=== PATIENT | female | born 1995 | race Caucasian/White ===

== ENCOUNTER → 2020-05-24 | Outpatient (CLI) | payer MEDICAID | LOC: COL.RAD 09:55 | DX: K31.84 Gastroparesis (principal) | CPT/HCPCS: A9537; J2805 ==

== ENCOUNTER 2020-08-12 12:08 | Emergency (ER) | payer MEDICAID ==
[~2020-08-12] VITALS: Ht 160 cm; Wt 59.1 kg
[2020-08-12 12:14] VITALS: BP 130/81; TEMP 98.9
[2020-08-12 12:55] LABS: COLLECTION METHOD CLEAN CATCH
[2020-08-12 13:01] LABS: BASO % 0.2 % (0.0-2.0); EOS % 0.1 % (0-4.0); GRAN # 9.1 (1.4-6.5); GRAN % 81.7 % (42.2-75.2); HEMOGLOBIN 11.5 g/dl (12.5-16.0); LYMPH # 1.5 (1.2-3.4); LYMPH % 13.2 % (20.0-51.0); MEAN CELL VOLUME 92 fl (80.0-100.0); MEAN CORPUSCULAR HEMOGLOBIN 31 pg (27.0-31.0); MEAN CORPUSCULAR HGB CONC 34 g/dl (33.0-37.0); MEAN PLATELET VOLUME 10.1 fl (7.4-10.4); MONO # 0.5 (0.1-0.6); MONO % 4.5 % (1.7-9.3); PLATELET COUNT 360 K/mm3 (130-400); RED BLOOD COUNT 3.67 M/mm3 (4.10-5.30); REDCELL DISTRIBUTION WIDTH-CV 12.6 % (11.5-14.5)
[2020-08-12 13:10] LABS: MUCOUS Present /lpf; PH 6 (5-8); URINE APPEARANCE Cloudy; URINE BACTERIA Rare /hpf; URINE BILIRUBIN Negative (NEGATIVE); URINE BLOOD Negative (NEGATIVE); URINE COLOR Yellow; URINE GLUCOSE Negative (NEGATIVE); URINE KETONE Trace (NEGATIVE); URINE LEUKOCYTE ESTERASE Negative (NEGATIVE); URINE NITRATE Negative (NEGATIVE); URINE PROTEIN(semi-quant) 1+ (NEGATIVE); URINE RBC 0-2 /hpf
[2020-08-12 13:10] LABS: HEMATOCRIT 33.8 % (37.0-47.0)
[2020-08-12 13:11] LABS: ALANINE AMINOTRANSFERASE 9 U/L (4-34); ALKALINE PHOSPHATASE 41 U/L (50-136); ANION GAP 10 mmol/L (7-16); AST,SGOT 18 U/L (15-37); BILIRUBIN,TOTAL 0.3 mg/dL (0.0-1.0); BLOOD UREA NITROGEN 7 mg/dL (7-17); CALCIUM 9.1 mg/dL (8.4-10.2); CARBON DIOXIDE 21 mmol/L (22-30); CHLORIDE 102 mmol/L (98-107); CREATININE, serum 0.41 (0.52-1.25); GLUCOSE 103 mg/dL (74-106); LIPASE 84 U/L (23-300); SODIUM 133 mmol/L (137-145); TOTAL PROTEIN 6.9 gm/dL (6.4-8.2)
[2020-08-12 13:12] LABS: C-REACTIVE PROTEIN < 0.5 mg/dL (0.0-0.9)
[2020-08-12] MEDS ORDERED: REGLAN 10MG10 MG/TAB PO (13:58)
[2020-08-12 14:20] LABS: HCG,QUANTITATIVE 103850 mIU/mL (0-5)
[2020-08-12 14:29] VITALS: PULSE 93
== END 2020-08-12 14:29 | disposition home or self-care (01) ==
LOC: COL.ER 12:08
PROVIDERS: Emergency Medicine
DX: O99.611 Diseases of the digestive system complicating pregnancy, first trimester (principal); O21.9 Vomiting of pregnancy, unspecified; K31.84 Gastroparesis; Z3A.09 9 weeks gestation of pregnancy; Z87.891 Personal history of nicotine dependence
CPT/HCPCS: J2405; J2550; J7030

== ENCOUNTER 2020-08-25 11:50 | Emergency (ER) | payer MEDICAID ==
[~2020-08-25] VITALS: Ht 160 cm; Wt 58.2 kg
[~2020-08-25 11:50] MED LIST: REGLAN 10MG10 MG/TAB PO
[2020-08-25 12:19] VITALS: TEMP 97.4
[2020-08-25 12:30] LABS: COLLECTION METHOD CLEAN CATCH
[2020-08-25 12:39] LABS: MUCOUS Present /lpf; PH 8 (5-8); URINE APPEARANCE Cloudy; URINE BACTERIA Rare /hpf; URINE BILIRUBIN Negative (NEGATIVE); URINE BLOOD Negative (NEGATIVE); URINE COLOR Yellow; URINE GLUCOSE Negative (NEGATIVE); URINE KETONE Negative (NEGATIVE); URINE LEUKOCYTE ESTERASE Negative (NEGATIVE); URINE NITRATE Negative (NEGATIVE); URINE PROTEIN(semi-quant) Negative (NEGATIVE); URINE RBC 0-2 /hpf; URINE UROBILINOGEN Negative (NEGATIVE)
[2020-08-25 13:20] LABS: BASO % 0.2 % (0.0-2.0); EOS % 0.3 % (0-4.0); GRAN # 8.9 (1.4-6.5); GRAN % 74.6 % (42.2-75.2); LYMPH # 2.2 (1.2-3.4); MEAN CELL VOLUME 92 fl (80.0-100.0); MEAN CORPUSCULAR HEMOGLOBIN 32 pg (27.0-31.0); MEAN CORPUSCULAR HGB CONC 35 g/dl (33.0-37.0); MEAN PLATELET VOLUME 10.1 fl (7.4-10.4); MONO # 0.8 (0.1-0.6); MONO % 6.6 % (1.7-9.3); PLATELET COUNT 319 K/mm3 (130-400); RED BLOOD COUNT 3.16 M/mm3 (4.10-5.30); REDCELL DISTRIBUTION WIDTH-CV 12.5 % (11.5-14.5)
[2020-08-25 13:23] LABS: HEMATOCRIT 28.9 % (37.0-47.0)
[2020-08-25 13:30] LABS: ALBUMIN 3.1 gm/dL (3.5-5.0); BILIRUBIN,TOTAL 0.2 mg/dL (0.0-1.0); CALCIUM 8.5 mg/dL (8.4-10.2); CREATININE, serum 0.36 (0.52-1.25); POTASSIUM 3.3 mmol/L (3.4-5.0); TOTAL PROTEIN 5.6 gm/dL (6.4-8.2)
[2020-08-25 14:29] VITALS: BP 119/69; PULSE 95
== END 2020-08-25 14:26 | disposition home or self-care (01) ==
LOC: COL.ER 11:50
PROVIDERS: Emergency Medicine; Nurse Practitioner
DX: O21.9 Vomiting of pregnancy, unspecified (principal); O26.891 Other specified pregnancy related conditions, first trimester; R10.30 Lower abdominal pain, unspecified; Z3A.12 12 weeks gestation of pregnancy; Z87.891 Personal history of nicotine dependence
CPT/HCPCS: J1200; J2765; J3415; J7030

== ENCOUNTER 2020-08-29 09:00 | Emergency (ER) | payer MEDICAID ==
[~2020-08-29] VITALS: Ht 160 cm; Wt 59.5 kg
[2020-08-29 09:09] VITALS: TEMP 98.2
[2020-08-29 09:53] LABS: BASO % 0.3 % (0.0-2.0); EOS % 0.2 % (0-4.0); GRAN # 8.5 (1.4-6.5); GRAN % 78.9 % (42.2-75.2); LYMPH # 1.5 (1.2-3.4); LYMPH % 13.9 % (20.0-51.0); MEAN CELL VOLUME 92 fl (80.0-100.0); MEAN CORPUSCULAR HEMOGLOBIN 31 pg (27.0-31.0); MEAN CORPUSCULAR HGB CONC 34 g/dl (33.0-37.0); MEAN PLATELET VOLUME 9.7 fl (7.4-10.4); MONO # 0.7 (0.1-0.6); MONO % 6.3 % (1.7-9.3); PLATELET COUNT 408 K/mm3 (130-400); RED BLOOD COUNT 4.14 M/mm3 (4.10-5.30); REDCELL DISTRIBUTION WIDTH-CV 12.6 % (11.5-14.5)
[2020-08-29 10:15] LABS: ALANINE AMINOTRANSFERASE 17 U/L (4-34); ALBUMIN 4.6 gm/dL (3.5-5.0); ALKALINE PHOSPHATASE 51 U/L (50-136); ANION GAP 10 mmol/L (7-16); AST,SGOT 20 U/L (15-37); BILIRUBIN,TOTAL 0.6 mg/dL (0.0-1.0); BLOOD UREA NITROGEN 7 mg/dL (7-17); CARBON DIOXIDE 25 mmol/L (22-30); CHLORIDE 99 mmol/L (98-107); CREATININE, serum 0.43 (0.52-1.25); GLUCOSE 100 mg/dL (74-106); LIPASE 65 U/L (23-300); POTASSIUM 4.9 mmol/L (3.4-5.0); SODIUM 134 mmol/L (137-145); TOTAL PROTEIN 7.7 gm/dL (6.4-8.2)
[2020-08-29 10:16] LABS: C-REACTIVE PROTEIN < 0.5 mg/dL (0.0-0.9)
[2020-08-29 11:01] LABS: COLLECTION METHOD CLEAN CATCH
[2020-08-29 11:15] LABS: PH 8 (5-8); SQUAMOUS EPITHELIAL 0-2 /hpf; URINE APPEARANCE Clear; URINE BACTERIA Rare /hpf; URINE BILIRUBIN Negative (NEGATIVE); URINE BLOOD Negative (NEGATIVE); URINE COLOR Straw; URINE GLUCOSE Negative (NEGATIVE); URINE KETONE Negative (NEGATIVE); URINE LEUKOCYTE ESTERASE Negative (NEGATIVE); URINE NITRATE Negative (NEGATIVE); URINE PROTEIN(semi-quant) Negative (NEGATIVE); URINE RBC 0-2 /hpf; URINE UROBILINOGEN Negative (NEGATIVE)
[2020-08-29 11:55] VITALS: BP 130/83; PULSE 77
== END 2020-08-29 12:00 | disposition home or self-care (01) ==
LOC: COL.ER 09:00
PROVIDERS: Family Medicine
DX: O21.9 Vomiting of pregnancy, unspecified (principal); Z3A.12 12 weeks gestation of pregnancy
CPT/HCPCS: J2550; J7030; J7120

== ENCOUNTER 2020-10-09 10:11 | Emergency (ER) | payer MEDICAID ==
[~2020-10-09] VITALS: Ht 160 cm; Wt 59.5 kg
[2020-10-09 10:17] VITALS: TEMP 97.9
[2020-10-09 11:05] LABS: COLLECTION METHOD CLEAN CATCH
[2020-10-09 11:09] LABS: BASO % 0.2 % (0.0-2.0); EOS % 0.4 % (0-4.0); GRAN % 74.6 % (42.2-75.2); HEMOGLOBIN 10.1 g/dl (12.5-16.0); LYMPH % 18.2 % (20.0-51.0); MEAN CELL VOLUME 93 fl (80.0-100.0); MEAN CORPUSCULAR HEMOGLOBIN 31 pg (27.0-31.0); MEAN CORPUSCULAR HGB CONC 34 g/dl (33.0-37.0); MEAN PLATELET VOLUME 10.2 fl (7.4-10.4); MONO # 0.7 (0.1-0.6); MONO % 6.2 % (1.7-9.3); PLATELET COUNT 345 K/mm3 (130-400); RED BLOOD COUNT 3.22 M/mm3 (4.10-5.30); REDCELL DISTRIBUTION WIDTH-CV 12.4 % (11.5-14.5)
[2020-10-09 11:21] LABS: HEMATOCRIT 29.9 % (37.0-47.0)
[2020-10-09 11:27] LABS: ALANINE AMINOTRANSFERASE 8 U/L (4-34); ALBUMIN 3.4 gm/dL (3.5-5.0); ALKALINE PHOSPHATASE 41 U/L (50-136); ANION GAP 6 mmol/L (7-16); AST,SGOT 17 U/L (15-37); BILIRUBIN,TOTAL 0.3 mg/dL (0.0-1.0); BLOOD UREA NITROGEN 4 mg/dL (7-17); CALCIUM 8.8 mg/dL (8.4-10.2); CARBON DIOXIDE 23 mmol/L (22-30); CHLORIDE 104 mmol/L (98-107); CREATININE, serum 0.41 (0.52-1.25); GLUCOSE 85 mg/dL (74-106); LIPASE 43 U/L (23-300); POTASSIUM 3.7 mmol/L (3.4-5.0); SODIUM 132 mmol/L (137-145); TOTAL PROTEIN 6.2 gm/dL (6.4-8.2)
[2020-10-09 11:28] LABS: C-REACTIVE PROTEIN < 0.5 mg/dL (0.0-0.9)
[2020-10-09 11:52] LABS: AMORPHOUS CRYSTAL Present /uL; MUCOUS Present /lpf; PH 9 (5-8); SQUAMOUS EPITHELIAL 0-2 /hpf; URINE APPEARANCE Cloudy; URINE BACTERIA Rare /hpf; URINE BILIRUBIN Negative (NEGATIVE); URINE BLOOD Negative (NEGATIVE); URINE COLOR Yellow; URINE GLUCOSE Negative (NEGATIVE); URINE KETONE Negative (NEGATIVE); URINE LEUKOCYTE ESTERASE Negative (NEGATIVE); URINE NITRATE Negative (NEGATIVE); URINE PROTEIN(semi-quant) 1+ (NEGATIVE); URINE RBC 0-2 /hpf; URINE UROBILINOGEN Negative (NEGATIVE)
[2020-10-09] MEDS ORDERED: PHENERGAN 25 TA25 MG PO (12:37)
[2020-10-09 13:37] VITALS: BP 101/61; PULSE 79
== END 2020-10-09 13:39 | disposition home or self-care (01) ==
LOC: COL.ER 10:11
PROVIDERS: Nurse Practitioner
DX: O21.9 Vomiting of pregnancy, unspecified (principal); O26.812 Pregnancy related exhaustion and fatigue, second trimester; Z3A.18 18 weeks gestation of pregnancy; Z87.891 Personal history of nicotine dependence
CPT/HCPCS: J2550; J7030

== ENCOUNTER 2020-10-21 09:45 | Emergency (ER) | payer MEDICAID ==
[~2020-10-21] VITALS: Ht 160 cm; Wt 58.6 kg
[~2020-10-21 09:45] MED LIST changes: +PHENERGAN 25 TA25 MG PO
[2020-10-21 09:51] VITALS: TEMP 98.7
[2020-10-21 10:23] LABS: COLLECTION METHOD CLEAN CATCH
[2020-10-21 10:37] LABS: ALBUMIN 3.6 gm/dL (3.5-5.0); BILIRUBIN,TOTAL 0.3 mg/dL (0.0-1.0); CALCIUM 8.8 mg/dL (8.4-10.2); CREATININE, serum 0.41 (0.52-1.25); TOTAL PROTEIN 6.5 gm/dL (6.4-8.2)
[2020-10-21 10:38] LABS: MUCOUS Present /lpf; PH 9 (5-8); SQUAMOUS EPITHELIAL None Seen /hpf; URINE APPEARANCE Cloudy; URINE BACTERIA Rare /hpf; URINE BILIRUBIN Negative (NEGATIVE); URINE BLOOD Negative (NEGATIVE); URINE COLOR Yellow; URINE GLUCOSE Negative (NEGATIVE); URINE KETONE Trace (NEGATIVE); URINE LEUKOCYTE ESTERASE Negative (NEGATIVE); URINE NITRATE Negative (NEGATIVE); URINE PROTEIN(semi-quant) 2+ (NEGATIVE); URINE UROBILINOGEN Negative (NEGATIVE)
[2020-10-21 10:39] LABS: POTASSIUM 3.5 mmol/L (3.4-5.0)
[2020-10-21 10:40] LABS: BASO % 0.3 % (0.0-2.0); EOS % 0.4 % (0-4.0); GRAN # 5.6 (1.4-6.5); GRAN % 73.2 % (42.2-75.2); HEMOGLOBIN 10.4 g/dl (12.5-16.0); LYMPH # 1.5 (1.2-3.4); LYMPH % 19.9 % (20.0-51.0); MEAN CELL VOLUME 90 fl (80.0-100.0); MEAN CORPUSCULAR HEMOGLOBIN 31 pg (27.0-31.0); MEAN CORPUSCULAR HGB CONC 35 g/dl (33.0-37.0); MEAN PLATELET VOLUME 10.4 fl (7.4-10.4); MONO # 0.5 (0.1-0.6); MONO % 6.1 % (1.7-9.3); PLATELET COUNT 385 K/mm3 (130-400); RED BLOOD COUNT 3.33 M/mm3 (4.10-5.30); REDCELL DISTRIBUTION WIDTH-CV 12.2 % (11.5-14.5)
[2020-10-21 10:49] LABS: HEMATOCRIT 30.1 % (37.0-47.0)
[2020-10-21 10:59] VITALS: BP 141/85
[2020-10-21] MEDS ORDERED: NATURAL IRON65 MG PO (11:02)
[2020-10-21] MEDS ORDERED: ZOFRAN ODT8 MG PO (11:02)
[2020-10-21 11:31] VITALS: PULSE 81
--- NOTE | 2020-10-21 16:22 | NUR ---
SW contacted patient at home, as patient had discharged prior to SW being able to contact her. WAYNE verified that patient lives at [address] [place] [address] in [place], [place] with life partner Kelton Talamantes. Patient has [employer] insurance. Patient sees Dr. Stein at [facility] and reports that she has regular care. Patient is interested in treatment for her substance use. SW explained that patient will need to receive screening and offered patient numbers for [facility] and [facility]. Patient reports that she will most likely make an appointment with [facility]. SW instructed patient to let developer architect know that she is currently , as it will place her as priority for IP/OP treatment. The developer architect will offer her options and assist with getting into treatment from there. Patient reports that she will attempt to call them today if not Monday 10/23 due to possible contact issues on the weekend. Patient denies any further questions or concerns at this time.
== END 2020-10-21 11:34 | disposition home or self-care (01) ==
LOC: COL.ER 09:45
PROVIDERS: Physician Assistant
DX: O21.9 Vomiting of pregnancy, unspecified (principal); O99.012 Anemia complicating pregnancy, second trimester; Z3A.19 19 weeks gestation of pregnancy
CPT/HCPCS: J2765; J7030

== ENCOUNTER 2020-11-14 08:19 | Emergency (ER) | payer MEDICAID ==
[~2020-11-14] VITALS: Ht 160 cm; Wt 59.1 kg
[~2020-11-14 08:19] MED LIST changes: +NATURAL IRON65 MG PO; +ZOFRAN ODT8 MG PO
[2020-11-14 08:27] VITALS: BP 93/57; TEMP 98.1
[2020-11-14 08:58] LABS: BASO % 0.4 % (0.0-2.0); EOS % 0.4 % (0-4.0); GRAN # 6.3 (1.4-6.5); GRAN % 79.2 % (42.2-75.2); LYMPH # 1.2 (1.2-3.4); LYMPH % 15.3 % (20.0-51.0); MEAN CELL VOLUME 93 fl (80.0-100.0); MEAN CORPUSCULAR HGB CONC 33 g/dl (33.0-37.0); MEAN PLATELET VOLUME 10.4 fl (7.4-10.4); MONO # 0.3 (0.1-0.6); MONO % 4.2 % (1.7-9.3); PLATELET COUNT 332 K/mm3 (130-400); RED BLOOD COUNT 3.23 M/mm3 (4.10-5.30); REDCELL DISTRIBUTION WIDTH-CV 12.5 % (11.5-14.5)
[2020-11-14 09:09] LABS: ALBUMIN 3.4 gm/dL (3.5-5.0); BILIRUBIN,TOTAL 0.1 mg/dL (0.0-1.0); CALCIUM 8.4 mg/dL (8.4-10.2); CREATININE, serum 0.41 (0.52-1.25); HEMATOCRIT 29.9 % (37.0-47.0); HEMOGLOBIN 9.9 g/dl (12.5-16.0); MEAN CORPUSCULAR HEMOGLOBIN 31 pg (27.0-31.0); POTASSIUM 3.8 mmol/L (3.4-5.0); TOTAL PROTEIN 6.3 gm/dL (6.4-8.2)
[2020-11-14 09:24] LABS: COLLECTION METHOD CLEAN CATCH
[2020-11-14 09:48] LABS: AMORPHOUS CRYSTAL Present /uL; MUCOUS Present /lpf; PH 9 (5-8); SQUAMOUS EPITHELIAL None Seen /hpf; URINE APPEARANCE Cloudy; URINE BACTERIA Rare /hpf; URINE BILIRUBIN Negative (NEGATIVE); URINE BLOOD Negative (NEGATIVE); URINE COLOR Yellow; URINE GLUCOSE Negative (NEGATIVE); URINE KETONE 1+ (NEGATIVE); URINE LEUKOCYTE ESTERASE Negative (NEGATIVE); URINE NITRATE Negative (NEGATIVE); URINE PROTEIN(semi-quant) 1+ (NEGATIVE); URINE RBC 0-2 /hpf; URINE UROBILINOGEN Negative (NEGATIVE)
[2020-11-14] MEDS ORDERED: ZOFRAN ODT4 MG PO (10:09)
[2020-11-14 10:14] VITALS: PULSE 115
== END 2020-11-14 10:14 | disposition home or self-care (01) ==
LOC: COL.ER 08:19
PROVIDERS: Emergency Medicine
DX: O26.892 Other specified pregnancy related conditions, second trimester (principal); O21.9 Vomiting of pregnancy, unspecified; R10.13 Epigastric pain; Z3A.23 23 weeks gestation of pregnancy
CPT/HCPCS: J2405; J2765; J7030

== ENCOUNTER 2020-11-14 10:11 | Outpatient (CLI) | payer MEDICAID ==
[~2020-11-14] VITALS: Ht 160 cm; Wt 59.1 kg
[~2020-11-14 10:11] MED LIST changes: +ZOFRAN ODT4 MG PO
--- NOTE | 2020-11-14 10:20 | NUR ---
1020-Patient to LR 3 from ED with complaints of right sided abdominal pain. Patient sees Dr. Bell in [place] for care and reports she is 23 weeks and a G4L1. Patient denies complications of other than "bad nausea." Patient admits to daily marijuana use "but I have cut back." to help with nausea. Reports the pain started this morning and was accompanied with severe nausea. Patient reports good movement and denies leaking of fluid. VSS. Patient very anxious throughout assessment and keeps saying "I didn't know you couldn't give me anything for my anxiety. I just want to leave." 1034-Spec exam by Dr. Romeo who is on unit. SVE by MD, closed cervix noted, no fluid. MD orders ultrasound. 1040-US on unit. Patient off EFM. 1100-Paitent calls out while US tech is in room and is very anxious in tears RN to bedside and discusses plan of care. Patient verbalizes desire to leave again. RN educates on right to decline procedure and leave AMA. Patient decides she would like to finish and leave as soon as possible. Patient unable to explain why she is so anxious only states "I don't like being in hospital." Updated Dr. Romeo with patients strong desire to leave. MD gives order that patient may leave following US and we will follow up with patient regarding results.
[2020-11-14 10:40] VITALS: BP 116/63; PULSE 90; TEMP 97.9
[2020-11-14 10:51] LABS: TRICYCLIC ANTIDEPRESS URINE NEGATIVE
--- NOTE | 2020-11-14 11:22 | NUR ---
Reviewed discharge instructions with patient. Educated on kick counts and when to return to hospital. Updated patient on need to call Dr. Bell for follow up for tomorrow. Patient verbalizes understanding. Patient will await results of Ultrasound patient phone verified [phone].
[2020-11-14 12:44] VITALS: BP 122/64; PULSE 76
== END 2020-11-14 11:22 | disposition home or self-care (01) ==
LOC: LDRO 10:11
PROVIDERS: Student in an Organized Health Care Education/Training Program
DX: O26.892 Other specified pregnancy related conditions, second trimester (principal); O21.9 Vomiting of pregnancy, unspecified; R10.9 Unspecified abdominal pain; Z3A.23 23 weeks gestation of pregnancy

== ENCOUNTER 2021-12-19 11:03 | Emergency (ER) | payer MEDICAID ==
[~2021-12-19] VITALS: Ht 160 cm; Wt 56.8 kg
[2021-12-19 11:13] VITALS: TEMP 99.6
[2021-12-19 11:50] LABS: GRAN # 5.3 K/mm3 (1.4-6.5); GRAN % 73.4 % (42.2-75.2); HEMATOCRIT 40.9 % (37.0-47.0); HEMOGLOBIN 14.5 g/dl (12.5-16.0); LYMPH # 1.2 K/mm3 (1.2-3.4); LYMPH % 16.3 % (20.0-51.0); MEAN CELL VOLUME 87 fl (80.0-100.0); MEAN CORPUSCULAR HEMOGLOBIN 31 pg (27-31); MEAN CORPUSCULAR HGB CONC 36 g/dl (33.0-37.0); MEAN PLATELET VOLUME 10.3 fl (7.4-10.4); MONO # 0.7 K/mm3 (0.1-0.6); PLATELET COUNT 399 K/mm3 (130-400); RED BLOOD COUNT 4.71 M/mm3 (4.10-5.30); REDCELL DISTRIBUTION WIDTH-CV 13.4 % (11.5-14.5)
[2021-12-19 12:04] LABS: ALBUMIN 5.4 gm/dL (3.5-5.0); BILIRUBIN,TOTAL 0.5 mg/dL (0.2-1.2); C-REACTIVE PROTEIN 0.2 mg/dL (0.00-0.50); CALCIUM 9.7 mg/dL (8.4-10.2); CREATININE, serum 1.43 mg/dL (0.57-1.11); POTASSIUM 3.1 mmol/L (3.5-4.5); TOTAL PROTEIN 8.9 gm/dL (6.2-8.1)
[2021-12-19] MEDS ORDERED: ZOFRAN ODT4 MG PO (12:22)
[2021-12-19 12:24] VITALS: BP 115/84; PULSE 71
== END 2021-12-19 12:30 | disposition home or self-care (01) ==
LOC: COL.ER 11:03
PROVIDERS: Emergency Medicine
DX: E86.0 Dehydration (principal); R11.2 Nausea with vomiting, unspecified; E87.1 Hypo-osmolality and hyponatremia; E87.8 Other disorders of electrolyte and fluid balance, not elsewhere classified; E87.6 Hypokalemia; N17.9 Acute kidney failure, unspecified; Z28.310 Unvaccinated for COVID-19
CPT/HCPCS: J2405; J7030